=== PATIENT | female | born 1950 | race Caucasian/White ===

== ENCOUNTER 2021-09-07 11:10 | Outpatient (CLI) | payer OTHER | END 2021-09-07 11:13 | disposition home or self-care (01) | LOC: MAMO-SONO 11:10 | DX: R10.9 Unspecified abdominal pain (principal); Z12.31 Encounter for screening mammogram for malignant neoplasm of breast ==

== ENCOUNTER 2021-09-15 13:44 | Outpatient (CLI) | payer OTHER | END 2021-09-15 13:50 | disposition home or self-care (01) | LOC: RAD 13:44 | PROVIDERS: ATTEND Physical Medicine & Rehabilitation | DX: M54.2 Cervicalgia (principal); M54.50 Low back pain, unspecified ==

== ENCOUNTER 2024-03-28 12:10 | Outpatient (CLI) | payer OTHER | END 2024-03-28 12:14 | disposition home or self-care (01) | LOC: SONOGRAMA 12:10 | DX: E04.2 Nontoxic multinodular goiter (principal) ==